=== PATIENT | female | born 1960 | race Caucasian/White ===

== ENCOUNTER → 2017-01-09 | Outpatient (CLI) | payer OTHER ==
--- NOTE | 2017-01-09 16:10 | RADIOLOGY REPORT (SQ) ---
EXAM DESCRIPTION: ARTERIAL LOWER EXTREM BILAT COMPLETED DATE/TIME: 01/09/2017 3:25 pm REASON FOR STUDY: ULCER L97.212 NON-PRESSURE CHRONIC ULCER OF RIGHT CALF W FAT LAYER COMPARISON: None. TECHNIQUE: Dynamic and static baum scale and color images acquired of the lower extremity arteries. Additional selected spectral images recorded. ABIs recorded. LIMITATIONS: Body habitus. FINDINGS: ABIs could not be obtained. Blood pressure could not be obtained in the ankles. No signi ficant stenosis above the knee bilaterally. Anterior tibial artery not imaged on either extremity. Posterior tibial artery patent on the right. Dorsalis pedis patent bilaterally. IMPRESSION: Technically limited study. No significant stenosis above the knee. Evaluation below th e knee limited. COMMENT: [facility] NORMAL: Greater than 1.0 MINIMAL DISEASE: 0.9 to 1.0 CLAUDICATION: 0.5 to 0.9 SEVERE ARTERIAL DISEASE: Less than 0.5 [facility] NORMAL: Greater than 1.0 (1.2 If Heavy Calcifications) NORMAL TO MILD ISCHEMIA: 0.8 to 1.0 MODERATE ISCHEMIA: 0.4 to 0.8 SEVERE ISCHEMIA: Less than 0.4 TECHNICAL DOCUMENTATION: JOB ID: [id number] [employer]- All Rights Reserved
--- NOTE | 2017-01-09 16:34 | RADIOLOGY REPORT (SQ) ---
EXAM DESCRIPTION: VENOUS REFLUX COMPLETED DATE/TIME: 01/09/2017 3:25 pm REASON FOR STUDY: ULCER L97.212 NON-PRESSURE CHRONIC ULCER OF RIGHT CALF W FAT LAYER COMPARISON: None. TECHNIQUE: Multiple real-time grayscale sonographic images were obtained for evaluation of the right and left lower extremity. Doppler and duplex evaluation of the venous structures was performed. LIMITATIONS: None. FINDINGS: The right common femoral, superficial femoral, popliteal and infrapopliteal veins are pat ent with normal response to compression and augmentation maneuvers. The left common femoral, popliteal and infrapopliteal veins are patent with normal response to compr ession and augmentation maneuvers. Along the left proximal femoral vein, there is chronic echogenic clot adherent to the wall. This causes incomplete vascular compression. No reflux. Right greater saphenous vein: No Right small saphenous vein: No Left greater saphenous vein: No Left small saphenous vein: No OTHER: No solid or cystic masses or other abnormal findings. No significant perforating vessels are seen. 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 Otherwi se normal study. TECHNICAL DOCUMENTATION: JOB ID: [id number] [email or web address]- All Rights Reserved
== END ==
LOC: SP 13:08
PROVIDERS: ATTEND Nurse Practitioner Family
DX: L97.212 Non-pressure chronic ulcer of right calf with fat layer exposed (principal); L97.222 Non-pressure chronic ulcer of left calf with fat layer exposed
CPT/HCPCS: 93925; 93970

== ENCOUNTER 2017-01-28 07:51 | Inpatient (IN) | payer OTHER ==
[2017-01-28] MEDS ORDERED: CLINDAMYCIN 900 MG/D5W RTU 50 ML IV ONE (08:51)
[2017-01-28] MEDS ORDERED: MORPHINE SULFATE 10 MG/ML INJ IV ONE (08:58)
--- NOTE | 2017-01-28 08:58 | ER Document Report ---
ED General - General Chief Complaint: Wound Infection Stated Complaint: LEG PAIN Time Seen by Provider: 01/28/17 08:42 TRAVEL OUTSIDE OF THE [place] IN LAST 30 DAYS: No - HPI Notes: This is a 56-year-old diabetic with chronic venous stasis ulcers of the legs presents to the emergency department as she is supposed to have wound debridement done today by Dr. Martinez through the operating room. No fever or systemic symptoms. She cannot tolerate debridement through the wound care clinic where she goes once a week due to pain. She has been n.p.o. since last night. Denies fever or systemic symptoms. Has lower extremity pain. - Related Data Allergies/Adverse Reactions: latex Allergy (Verified 01/28/17 07:58) Home Medications: Current Home Medications Gabapentin [Neurontin] 800 mg PO TID 01/28/17 [History] Metformin HCl [Glucophage XR 500 mg Tablet] 1,000 mg PO BID 01/28/17 [History] Naproxen 500 mg PO BID 01/28/17 [History] Telmisartan/Hydrochlorothiazid [Micardis HCT 40-12.5 mg Tablet] 1 tab PO DAILY 01/28/17 [History] Past Medical History - Social History Smoking Status: Never Smoker Family History: Reviewed & Not Pertinent Renal/ Medical History: Denies: Hx Peritoneal Dialysis Review of Systems - Review of Systems -: Yes All other systems reviewed and negative Physical Exam - Vital signs Vitals: Temp Pulse Resp BP Pulse Ox 97.4 F 96 18 104/68 97 01/28/17 07:52 01/28/17 07:52 01/28/17 07:52 01/28/17 07:52 01/28/17 07:52 Notes: GENERAL: VS as per nursing doc. Well-appearing, well-nourished and in no acute distress. HEAD: Atraumatic, normocephalic. EYES: Pupils equal round and reactive to light, extraocular movements intact, sclera anicteric, no conjunctival injection or discharge. ENT: Nares patent, oropharynx clear without exudates, moist mucous membranes. NECK: Normal range of motion, supple without lymphadenopathy. LUNGS: Breath sounds clear to auscultation bilaterally and equal. No wheezes rales or rhonchi. HEART: Regular rate and rhythm without murmurs. ABDOMEN: Soft, non-tender EXTREMITIES: Chronic venous stasis and cellulitic changes of bilateral lower extremities with some serous drainage noted NEUROLOGICAL: Normal speech. Normal sensory and motor exams. No gross cerebellar abnormalities. PSYCH: Normal mood, normal affect. SKIN: Warm, dry, see above Course - Vital Signs Vital signs: Temp Pulse Resp BP Pulse Ox 97.5 F 112 H 16 110/49 L 100 01/28/17 19:13 01/28/17 19:13 01/28/17 19:13 01/28/17 19:13 01/28/17 19:13 - Laboratory Result Diagrams: 01/29/17 06:34 01/28/17 09:50 Discharge - Discharge Clinical Impression: Cellulitis Condition: Good Disposition: ADMITTED INPATIENT Admitting Provider: Juan Unit Admitted: Surgical Floor
[2017-01-28] MEDS ORDERED: ONDANSETRON HCL INJ/PF 4 MG/2 ML SDV IV ONE (08:59)
[2017-01-28] MEDS ORDERED: NORMAL SALINE 1000 ML 1,000 ML IV ONE (09:00)
[2017-01-28 10:20] LABS: ABSOLUTE EOSINOPHILS # (AUTO) 0.1 10^3/uL (0.0-0.6); ABSOLUTE MONOCYTES (AUTO) 0.7 10^3/uL (0.1-1.4); ABSOLUTE NEUT (AUTO) 8.2 10^3/uL (1.7-8.2); BASOPHILS % (AUTO) 0.4 % (0-2); EOSINOPHILS % (AUTO) 1.1 % (0-6); HEMOGLOBIN 10.7 g/dL (12.0-15.5); HGB HCT DIFFERENCE -0.9; LYMPHOCYTES % (AUTO) 10.2 % (13-45); MEAN CORPUSCULAR HEMOGLOBIN 27.3 pg (27.0-33.4); MEAN CORPUSCULAR HGB CONC 32.5 g/dL (32.0-36.0); MEAN CORPUSCULAR VOLUME 84 fl (80-97); MONOCYTES % (AUTO) 6.7 % (3-13); RED BLOOD COUNT 3.93 10^6/uL (3.72-5.28); RED CELL DISTRIBUTION WIDTH 16.9 % (11.5-14.0); SEGMENTED NEUTROPHILS % (AUTO) 81.6 % (42-78)
[2017-01-28] MEDS ORDERED: HYDROMORPHONE HCL INJ/PF 2 MG/ML AMPULE IV ONE (10:31)
[2017-01-28 10:49] LABS: ANION GAP 13 (5-19); BLOOD UREA NITROGEN 85 mg/dL (7-20); CALCIUM 9.6 mg/dL (8.4-10.2); CARBON DIOXIDE 15 mmol/L (22-30); CHLORIDE 103 mmol/L (98-107); CREATININE RESULT 2.18 mg/dL (0.52-1.25); GLUCOSE 117 mg/dL (75-110); POTASSIUM 5.6 mmol/L (3.6-5.0); SODIUM 130.8 mmol/L (137-145)
[2017-01-28] MEDS ORDERED: MORPHINE SULFATE 10 MG/ML INJ IV PRN ×2 (12:08→17:09)
[2017-01-28] MEDS ORDERED: DEXTROSE 5%-1/2 NORMAL SALINE 1,000 ML IV PRN (12:08)
[2017-01-28] MEDS ORDERED: MORPHINE SULFATE 10 MG/ML INJ ONE (12:08)
--- NOTE | 2017-01-28 16:10 | PDOC H&P ---
General Chief Complaint: Bilateral leg pain, severe about 1 week's duration. No fever moderate drainage. - Diagnosis (1) Stasis dermatitis of left lower extremity with venous ulcer due to chronic peripheral venous hypertension Is this a Current Diagnosis?: Yes (2) Morbid obesity Is this a Current Diagnosis?: Yes (3) Cellulitis Is this a Current Diagnosis?: Yes - Current Medications/Allergies Home Medications: Gabapentin [Neurontin] 800 mg PO TID 01/28/17 Metformin HCl [Glucophage XR 500 mg Tablet] 1,000 mg PO BID 01/28/17 Naproxen 500 mg PO BID 01/28/17 Telmisartan/Hydrochlorothiazid [Micardis HCT 40-12.5 mg Tablet] 1 tab PO DAILY 01/28/17 Allergies/Adverse Reactions: latex Allergy (Verified 01/28/17 07:58) Family History Parental Family History Reviewed: No Children Family History Reviewed: No Sibling(s) Family History Reviewed.: No Social History Smoking Status: Unknown if Ever Smoked Frequency of Alcohol Use: None Drugs: None - Advance Directive Resuscitation Status: Full Code Physical Exam Vital Signs: Temp Pulse Resp BP Pulse Ox 97.5 F 94 20 102/58 L 100 01/28/17 11:56 01/28/17 11:56 01/28/17 11:56 01/28/17 11:56 01/28/17 11:56 Intake & Output 01/27/17 01/28/17 01/29/17 06:59 06:59 06:59 Weight 179.7 kg Additional comments: Constitutional: Well-developed well-nourished lady, morbidly obese. No apparent acute distress. Eyes: Mucous membranes pink and moist, pupils equal and reactive to light. Conjunctiva normal. Cornea normal. Wears spectacles. ENT: Hearing grossly normal. External pinna normal to inspection. Teeth missing tongue normal to inspection. Cardiac: Heart sounds 1 and 2 normal, no murmurs. Respiratory breath sounds are present bilaterally, normal. Normal respiratory effort. Skin: Swollen, erythematous, tender, weeping ulcers of both legs. Almost circumferential. Much necrotic skin. Psychiatric: Judgment, memory, insight seem normal. Mood is tearful, complains of pain. Extremities: Upper extremities show normal range of movement. Pulses present noted to the radial arteries. Capillary refill normal. No cyanosis noted. No muscle wasting noted. Lower extremities just range of movement secondary to body habitus, ulceration. Pulses present noted to the dorsalis pedis artery. Capillary refill normal. No cyanosis noted. No muscle wasting noted. Very extensive, slightly green tinged necrotic ulcers of both legs. Impression/Plan Impression: #1 cellulitis of the both legs. 2. Stasis dermatitis with ulceration in both legs. 3. Morbid obesity. Plan: The plan is to admit the patient for IV antibiotic. She is known to have a history of methicillin-resistant staph aureus. Debridement to be done in the operating room followed by wound care.
[2017-01-28] MEDS ORDERED: LIDOCAINE 2% JELLY 30 ML TUBE ONE (16:23)
[2017-01-28] MEDS ORDERED: FENTANYL CITRATE INJ/PF 100 MCG/2 ML AMPUL ONE ×2 (16:26→17:23)
[2017-01-28] MEDS ORDERED: MIDAZOLAM 2 MG/2 ML INJ ONE (16:26)
[2017-01-28] MEDS ORDERED: LIDOCAINE 2% INJ-PF (20 MG/ML) 10 ML AMPUL ONE (16:26)
[2017-01-28] MEDS ORDERED: PROPOFOL INJ 200 MG/20 ML VIAL IV ONE (16:26)
[2017-01-28] MEDS ORDERED: LIDOCAINE 2% JELLY 30 ML TUBE TOP ONE (17:00)
[2017-01-28] MEDS ORDERED: MEPERIDINE HCL/PF INJ 25 MG/1 ML DISP.SYRIN IV PRN (17:09)
[2017-01-28] MEDS ORDERED: DIPHENHYDRAMINE HCL 50 MG/ML VIAL IV PRN (17:09)
[2017-01-28] MEDS ORDERED: FENTANYL CITRATE INJ/PF 100 MCG/2 ML AMPUL IV PRN ×3 (17:09)
[2017-01-28] MEDS ORDERED: OXYCODONE-ACETAMINOPHEN 5-325 MG TABLET PO PRN ×2 (17:09)
[2017-01-28] MEDS ORDERED: PROMETHAZINE HCL INJ 25 MG/1 ML VIAL IV PRN ×2 (17:09)
--- NOTE | 2017-01-28 17:55 | Operative Report ---
Operative Report DATE OF SURGERY: 01/28/17 PREOPERATIVE DIAGNOSIS: 1. Cellulitis and necrosis of skin in both lower extremities. 2. Stasis dermatitis and ulceration bilateral lower extremity. 3. Morbid obesity. 4. History of MRSA infection. 5. History of deep venous thrombosis and pulmonary embolism. POSTOPERATIVE DIAGNOSIS: 1. Cellulitis and necrosis of skin in both lower extremities. Post debridement. 2. Stasis dermatitis and ulceration bilateral lower extremity. 3. Morbid obesity. 4. History of MRSA infection. 5. History of deep venous thrombosis and pulmonary embolism. OPERATION: Debridement of necrotic skin in the both lower extremities. SURGEON: MARISSA CORREA COMMERCIAL COUNSEL: None ANESTHESIA: LMAC TISSUE REMOVED OR ALTERED: Necrotic skin of both lower extremities. COMPLICATIONS: None ESTIMATED BLOOD LOSS: 20 mL INTRAOPERATIVE FINDINGS: Of necrosis in the skin, circumferential in both legs on a base of severe stasis dermatitis and cellulitis. PROCEDURE: PROCEDURE: The lower extremities were prepared with [Betadine] and draped out with sterile linen. After the"universal time-out", in which it was confirmed that the patient [did receive antibiotic], the procedure commenced. The patient was appropriately anesthetized. The Betadine was washed off with saline. Curettes were used to remove the necrotic skin which was submitted for culture. Cultures were now taken and sent. .The wound was now irrigated with saline and [Surgicel] placed within it , dressed with Xeroform and [Kerlix] then Malvin wraps applied and the procedure concluded.
[2017-01-28] MEDS ORDERED: CLINDAMYCIN 600 MG/D5W RTU 600 MG/50 ML RTUPB IV SCH (18:00)
[2017-01-28] MEDS ORDERED: OXYCODONE-ACETAMINOPHEN 5-325 MG TABLET PO SCH (18:00)
[2017-01-28] MEDS ORDERED: ENOXAPARIN SODIUM INJ 30 MG/0.3 ML DISP.SYRIN SUBCUT SCH (18:00)
[2017-01-28] MEDS: CLINDAMYCIN 600 MG/D5W RTU 600 MG/50 ML RTUPB IV SCH (21:53)
[2017-01-28] MEDS: ENOXAPARIN SODIUM INJ 30 MG/0.3 ML DISP.SYRIN SUBCUT SCH (21:54)
[2017-01-28] MEDS: MORPHINE SULFATE 10 MG/ML INJ IV PRN (21:55)
[2017-01-29] MEDS: MORPHINE SULFATE 10 MG/ML INJ IV PRN ×5 (03:34→21:26)
[2017-01-29] MEDS: CLINDAMYCIN 600 MG/D5W RTU 600 MG/50 ML RTUPB IV SCH ×3 (06:00→21:28)
[2017-01-29 06:59] LABS: HEMATOCRIT 28.3 % (36.0-47.0); HEMOGLOBIN 9.3 g/dL (12.0-15.5); HGB HCT DIFFERENCE -0.4; MEAN CORPUSCULAR HEMOGLOBIN 27.2 pg (27.0-33.4); MEAN CORPUSCULAR HGB CONC 32.7 g/dL (32.0-36.0); MEAN CORPUSCULAR VOLUME 83 fl (80-97); RED CELL DISTRIBUTION WIDTH 16.3 % (11.5-14.0); WHITE BLOOD COUNT 8.3 10^3/uL (4.0-10.5)
[2017-01-29 07:19] LABS: ANION GAP 8 (5-19); CALCIUM 9.3 mg/dL (8.4-10.2); CARBON DIOXIDE 18 mmol/L (22-30); CHLORIDE 109 mmol/L (98-107); CREATININE RESULT 1.53 mg/dL (0.52-1.25); GLUCOSE 146 mg/dL (75-110); POTASSIUM 5.5 mmol/L (3.6-5.0); SODIUM 134.9 mmol/L (137-145)
[2017-01-29 07:51] LABS: BLOOD UREA NITROGEN 55 mg/dL (7-20)
[2017-01-29] MEDS: ENOXAPARIN SODIUM INJ 30 MG/0.3 ML DISP.SYRIN SUBCUT SCH ×2 (09:35→21:32)
--- NOTE | 2017-01-29 10:23 | CONSULTATION REPORT E ---
Consultation Report NAME: RAYMUNDO BROWN : 1960 AGE: 56Y DATE: 01/29/2017 228 A TO: MONIKA SNYDER M.D. FROM: MARISSA GARZA M.D. Requesting Physician CHIEF COMPLAINT: Bilateral lower extremity pain. HISTORY: This is a 56-year-old morbidly obese patient who was admitted with a diagnosis of cellulitis in both lower extremities. This has been an ongoing problem. She has been scheduled for debridement and a request for pain management to assist with her pain associated with her chronic leg pain as well as the acute pain associated with debridement has been made. The patient was seen and evaluated. She notes that in general her pain is adequately controlled at home with limited medications using Naprosyn and tramadol. However, she has considerably more pain during debridement as expected, as well as associated with the flareup of cellulitis. She is requesting modest changes in her medications to assist in better control while she is hospitalized. MEDICATIONS: Other medications at home include: 1. Gabapentin. 2. Metformin. 3. Naprosyn. 4. Tramadol. 5. Micardis. ALLERGIES: LATEX. FAMILY HISTORY: Noncontributory. SOCIAL HISTORY: She is a nonsmoker, nondrinker. She has limited activity at home due to her coexisting medical problems. PHYSICAL EXAMINATION: GENERAL: She is awake, alert, oriented, interactive. VITAL SIGNS: Stable. She is cooperative. Her speech is clear and fluent. SKIN: Dressings are on her lower extremities to her calves. Otherwise, unremarkable. EYES: Her conjunctivae are clear. Sclerae are white. EARS: Normal gross hearing. CARDIAC: Normal rhythm. RESPIRATORY: Good inspiration and expiration without audible wheezing. ABDOMEN: Morbidly obese. EXTREMITIES: As previously described. NEUROLOGICAL: Difficult to assess motor function in the lower extremities secondary to pain. PSYCHIATRIC: She is calm, cooperative, and does not appear overtly distressed. IMPRESSION: 1. Cellulitis with acute pain. 2. History of chronic pain, well managed on an outpatient basis. 3. Morbid obesity. 4. Diabetes. 5. Hypertension. RECOMMENDATIONS: Her medications have been reviewed. Her IV morphine has been changed from 3 mg q. 4 hours p.r.n. to 4 mg q. 3 hours p.r.n. Oxycodone has been changed from 5 mg t.i.d. to 5 mg with Tylenol q. 4 hours p.r.n., hold for sedation. No other recommendations are made at this time. The patient has been instructed to contact pain management on an outpatient basis for further care, and should her pain prove insufficient, to contact pain management through the nursing staff to make adjustments as deemed necessary. DICTATING PHYSICIAN: MONIKA SNYDER M.D. [id number] PHY#: [id number] ID: [id number] JOB#: [id number] ACCT: [id number] cc:MONIKA SNYDER M.D. >
[2017-01-29] MEDS: OXYCODONE-ACETAMINOPHEN 5-325 MG TABLET PO PRN (18:32)
--- NOTE | 2017-01-29 19:02 | PDOC PROGRESS REPORT ---
Subjective Progress Note for:: 01/29/17 Subjective:: Overall the patient is comfortable. She is complaining of stinging pain when she gets up to the commode. On questioning, she does not notice having a high pulse rate. This is actually been noted since her admission on the it may be chronic. Physical Exam Vital Signs: Temp Pulse Resp BP Pulse Ox 98.3 F 101 H 16 117/51 L 100 01/29/17 16:18 01/29/17 16:18 01/29/17 16:18 01/29/17 16:18 01/29/17 16:18 Intake & Output 01/28/17 01/29/17 01/30/17 06:59 06:59 06:59 Intake Total 1660 Output Total 1815 Balance -155 Weight 179.7 kg Additional comments: Constitutional: Well-developed well-nourished lady, morbidly obese body habitus. No apparent acute distress. Eyes: Mucous membranes pink and moist, pupils equal and reactive to light. Conjunctiva normal. Cornea normal. ENT: Hearing grossly normal. External pinna normal to inspection. Teeth intact. Tongue normal to inspection. Respiratory: Normal respiratory effort. Psychiatric: Judgment, memory, insight seem normal. Mood is pleasant and appropriate. Lower extremities show normal range of movement at the feet. . Capillary refill normal. No cyanosis noted. Dressings intact with some mild greenish staining.. Results Laboratory Results: 01/29/17 06:34 01/29/17 06:34 01/29/17 01/29/17 06:34 06:34 WBC 8.3 RBC 3.40 L Hgb 9.3 L Hct 28.3 L MCV 83 MCH 27.2 MCHC 32.7 RDW 16.3 H Plt Count 254 Sodium 134.9 L Potassium 5.5 H Chloride 109 H Carbon Dioxide 18 L Anion Gap 8 BUN 55 H D Creatinine 1.53 H Est GFR ( Amer) 42 L Est GFR (Non-Af Amer) 35 L Glucose 146 H Calcium 9.3 Assessment & Plan - Diagnosis (1) Stasis dermatitis of left lower extremity with venous ulcer due to chronic peripheral venous hypertension Is this a current diagnosis for this admission?: Yes (2) Morbid obesity Is this a current diagnosis for this admission?: Yes (3) Cellulitis Qualifiers: Site of cellulitis of extremity: lower extremity Laterality: unspecified laterality Is this a current diagnosis for this admission?: Yes (4) History of DVT (deep vein thrombosis) Is this a current diagnosis for this admission?: No Plan: On low molecular weight heparin, on sequential compression device. Ambulation encouraged physical therapy consult and nursing the patient up and about as much as possible. (5) Tachycardia Is this a current diagnosis for this admission?: Yes Plan: EKG, repeat CBC, obtain hospitalist consultation. This seems is asymptomatic, the patient has not noted it and it has been present since his admission. - Plan Summary Plan Summary: Holistic plan for this patient pain management issues and cellulitis in the both legs on severe stasis ulceration is continued IV antibiotic, repeat procedure to the operating room for repeat debridement. In the meanwhile we will try to obtain a consultation from pain management for optimal pain control and also from the hospitalist service regarding her asymptomatic tachycardia. The hope and expectation is to revisit debridement and to days and possibly aim for discharge in 3-4 days. The possibilities of things getting more complex always there in this patient who is morbidly obese and a history of deep venous thrombosis and pulmonary embolism.
[2017-01-30] MEDS: MORPHINE SULFATE 10 MG/ML INJ IV PRN ×4 (02:54→18:00)
[2017-01-30] MEDS: CLINDAMYCIN 600 MG/D5W RTU 600 MG/50 ML RTUPB IV SCH ×3 (06:17→22:53)
[2017-01-30] MEDS: OXYCODONE-ACETAMINOPHEN 5-325 MG TABLET PO PRN ×4 (06:17→23:03)
[2017-01-30 06:25] LABS: ABSOLUTE EOSINOPHILS # (AUTO) 0.1 10^3/uL (0.0-0.6); ABSOLUTE LYMPHOCYTES (AUTO) 0.9 10^3/uL (0.5-4.7); ABSOLUTE MONOCYTES (AUTO) 0.6 10^3/uL (0.1-1.4); BASOPHILS % (AUTO) 0.5 % (0-2); EOSINOPHILS % (AUTO) 1.7 % (0-6); HEMOGLOBIN 9.1 g/dL (12.0-15.5); HGB HCT DIFFERENCE -0.7; LYMPHOCYTES % (AUTO) 15.6 % (13-45); MEAN CORPUSCULAR HEMOGLOBIN 27.2 pg (27.0-33.4); MEAN CORPUSCULAR HGB CONC 32.4 g/dL (32.0-36.0); MEAN CORPUSCULAR VOLUME 84 fl (80-97); MONOCYTES % (AUTO) 9.9 % (3-13); RED BLOOD COUNT 3.33 10^6/uL (3.72-5.28); RED CELL DISTRIBUTION WIDTH 16.4 % (11.5-14.0); SEGMENTED NEUTROPHILS % (AUTO) 72.3 % (42-78); WHITE BLOOD COUNT 5.6 10^3/uL (4.0-10.5)
--- NOTE | 2017-01-30 08:35 | EKG REPORT ---
SEVERITY:- ABNORMAL ECG - SINUS TACHYCARDIA PROBABLE INFERIOR INFARCT, AGE INDETERMINATE : Confirmed by: Jared Lake 30-Jan-2017 08:34:18
[2017-01-30] MEDS: ENOXAPARIN SODIUM INJ 30 MG/0.3 ML DISP.SYRIN SUBCUT SCH ×2 (09:31→22:52)
--- NOTE | 2017-01-30 10:33 | PDOC CONSULTATION ---
Consultation Consult Date: 01/30/17 Consult reason:: Persistent tachycardia History of Present Illness Admission Date/PCP: 01/28/17 09:36 FLAVIO EMANUEL Patient complains of: None History of Present Illness: RAYMUNDO BROWN is a 56 year old female who underwent debridement of her lower legs 2 days ago, and has since been tachycardic. She is without complaints. Specifically, she did not report shortness of breath or chest pain. Her heart rate has been as high as 115. For the last 24 hours, it has been in the 90s. She has a history of hypertension and has been treated with Micardis/HCT. She has not been on her antihypertensive medications during this hospital stay. Past Medical History Cardiac Medical History: Reports: Hypertension Endocrine Medical History: Reports: Diabetes Mellitus Type 2, Obesity Renal/ Medical History: Reports: None Infectious Medical History: Reports: Methicillin-Resistant Staph Aureus - Colonization Social History Lives with: Family Smoking Status: Never Smoker Frequency of Alcohol Use: None Drugs: None - Advance Directive Resuscitation Status: Full Code Family History Family History: Reviewed & Not Pertinent Parental Family History Reviewed: No Children Family History Reviewed: No Sibling(s) Family History Reviewed.: No Medication/Allergy Home Medications: Gabapentin [Neurontin] 800 mg PO TID 01/28/17 Metformin HCl [Glucophage XR 500 mg Tablet] 1,000 mg PO BID 01/28/17 Naproxen 500 mg PO BID 01/28/17 Telmisartan/Hydrochlorothiazid [Micardis HCT 40-12.5 mg Tablet] 1 tab PO DAILY 01/28/17 Allergies/Adverse Reactions: latex Allergy (Verified 01/28/17 07:58) Review of Systems Constitutional: ABSENT: chills, fever(s), headache(s), weight gain, weight loss Eyes: ABSENT: visual disturbances Ears: ABSENT: hearing changes Cardiovascular: ABSENT: chest pain, dyspnea on exertion, edema, orthropnea, palpitations Respiratory: ABSENT: cough, hemoptysis Gastrointestinal: ABSENT: abdominal pain, constipation, diarrhea, hematemesis, hematochezia, nausea, vomiting Musculoskeletal: PRESENT: back pain - Chronic Neurological: ABSENT: abnormal gait, abnormal speech, confusion, dizziness, focal weakness, syncope Physical Exam Vital Signs: Temp Pulse Resp BP Pulse Ox 98.7 F 96 15 104/55 L 98 01/30/17 08:10 09/13/17 08:10 01/30/17 08:10 01/30/17 08:10 01/30/17 08:10 Intake & Output 01/29/17 01/30/17 01/31/17 06:59 06:59 06:59 Intake Total 1660 Output Total 1815 Balance -155 Weight 179.7 kg General appearance: PRESENT: no acute distress, morbidly obese Head exam: PRESENT: atraumatic, normocephalic Eye exam: PRESENT: EOMI, PERRLA Neck exam: PRESENT: full ROM Respiratory exam: PRESENT: clear to auscultation keith. ABSENT: rales, rhonchi, wheezes Cardiovascular exam: PRESENT: RRR. ABSENT: diastolic murmur, rubs, systolic murmur GI/Abdominal exam: PRESENT: hypoactive bowel sounds, soft. ABSENT: distended, tenderness Neurological exam: PRESENT: alert, oriented to person, oriented to place, oriented to time, oriented to situation, CN II-XII grossly intact Psychiatric exam: PRESENT: appropriate affect, normal mood. ABSENT: homicidal ideation, suicidal ideation Skin exam: PRESENT: dry, intact, warm, other - Lower legs are wrapped in Malvin bandage. ABSENT: cyanosis, rash Results Laboratory Results: 01/30/17 06:02 01/29/17 06:34 01/30/17 06:02 WBC 5.6 RBC 3.33 L Hgb 9.1 L Hct 28.0 L MCV 84 MCH 27.2 MCHC 32.4 RDW 16.4 H Plt Count 238 Seg Neutrophils % 72.3 Lymphocytes % 15.6 Monocytes % 9.9 Eosinophils % 1.7 Basophils % 0.5 Absolute Neutrophils 4.0 Absolute Lymphocytes 0.9 Absolute Monocytes 0.6 Absolute Eosinophils 0.1 Absolute Basophils 0.0 Assessment & Plan - Diagnosis (1) Acute kidney injury Is this a current diagnosis for this admission?: Yes Plan: I suspect this is related to volume depletion, in the setting of her antihypertensive medications. Her creatinine has improved with IV fluids alone. I will continue the IV fluids, and repeat labs in a.m. (2) Hypotension Qualifiers: Hypotension type: unspecified hypotension type Qualified Code(s): I95.9 - Hypotension, unspecified Is this a current diagnosis for this admission?: Yes Plan: As above, this is most likely due to volume depletion in the setting of antihypertensive medications. The IV fluids. She may not need blood pressure medications at the time of discharge. If so, she can follow-up with her outpatient physician for further evaluation. (3) Hyperkalemia Is this a current diagnosis for this admission?: Yes Plan: Although mild, still abnormal. Again, this is related to the above. (4) Sinus tachycardia Is this a current diagnosis for this admission?: Yes Plan: See above. Her heart rate has improved with administration of IV fluids. We will continue the fluids. 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 Metformin has been held. I will continue to hold it. Change dextrose containing IV fluids to half-normal saline. Check hemoglobin A1c. If her creatinine normalizes, she should be able to go back on metformin. (6) Morbid obesity Is this a current diagnosis for this admission?: Yes Plan: Outpatient weight management (7) Hypertension Qualifiers: Hypertension type: essential hypertension Qualified Code(s): I10 - Essential (primary) hypertension Is this a current diagnosis for this admission?: Yes Plan: Currently, her blood pressure is low. She may no longer require antihypertensive medications. Time will tell. I will continue to hold Micardis /HCTZ. She may need to follow-up with her outpatient provider to determine whether or not to restart it or not. - Time Time Spent: 50 to 70 Minutes Medications reviewed and adjusted accordingly: Yes Anticipated discharge: Home
[2017-01-30] MEDS: 1/2 NORMAL SALINE 1,000 ML IV PRN (12:28)
[2017-01-31] MEDS: 1/2 NORMAL SALINE 1,000 ML IV PRN (03:35)
[2017-01-31] MEDS: OXYCODONE-ACETAMINOPHEN 5-325 MG TABLET PO PRN ×3 (03:39→19:55)
[2017-01-31 04:40] LABS: HEMATOCRIT 26.6 % (36.0-47.0); HGB HCT DIFFERENCE 0.4; MEAN CORPUSCULAR HEMOGLOBIN 27.8 pg (27.0-33.4); MEAN CORPUSCULAR VOLUME 82 fl (80-97); RED BLOOD COUNT 3.25 10^6/uL (3.72-5.28); RED CELL DISTRIBUTION WIDTH 16.4 % (11.5-14.0)
[2017-01-31 04:53] LABS: ANION GAP 8 (5-19); BLOOD UREA NITROGEN 30 mg/dL (7-20); CALCIUM 8.9 mg/dL (8.4-10.2); CARBON DIOXIDE 20 mmol/L (22-30); CHLORIDE 109 mmol/L (98-107); CREATININE RESULT 1.34 mg/dL (0.52-1.25); GLUCOSE 113 mg/dL (75-110); POTASSIUM 4.8 mmol/L (3.6-5.0); SODIUM 136.6 mmol/L (137-145)
[2017-01-31] MEDS: CLINDAMYCIN 600 MG/D5W RTU 600 MG/50 ML RTUPB IV SCH (05:27)
[2017-01-31 05:59] LABS: FOLATE 8.44 ng/mL (>2.76)
[2017-01-31] MEDS: MORPHINE SULFATE 10 MG/ML INJ IV PRN ×2 (08:02→14:17)
[2017-01-31] MEDS: ENOXAPARIN SODIUM INJ 30 MG/0.3 ML DISP.SYRIN SUBCUT SCH (10:17)
[2017-01-31] MEDS ORDERED: BUPIVACAINE HCL 0.25 % INJ/PF (2.5 MG/1 ML) 30 ML VIAL ONE (10:31)
[2017-01-31] MEDS ORDERED: LIDOCAINE 2% INJ-PF (20 MG/ML) 10 ML AMPUL ONE (10:31)
[2017-01-31] MEDS ORDERED: LIDOCAINE 0.5% INJ-PF (5 MG/ML) 50 ML SDV ONE (10:31)
[2017-01-31] MEDS ORDERED: SILVER SULFADIAZINE 1% CREAM 25 GM ONE (10:31)
[2017-01-31] MEDS ORDERED: COLLAGENASE CLOSTRIDIUM HIST. OINT 30 GM ONE (10:31)
[2017-01-31] MEDS ORDERED: KETAMINE HCL INJ 500 MG/10 ML VIAL ONE (10:32)
[2017-01-31] MEDS ORDERED: FENTANYL CITRATE INJ/PF 100 MCG/2 ML AMPUL ONE ×2 (10:32→10:42)
[2017-01-31] MEDS ORDERED: BACITRACIN INJ 50,000 UNIT VIAL ONE (10:32)
[2017-01-31] MEDS ORDERED: MIDAZOLAM 2 MG/2 ML INJ ONE ×2 (10:32→12:32)
[2017-01-31] MEDS ORDERED: PROPOFOL INJ 200 MG/20 ML VIAL IV ONE (10:32)
[2017-01-31] MEDS ORDERED: ACETAMINOPHEN 100 ML IV ONE (10:32)
[2017-01-31] MEDS ORDERED: SULFAMETHOXAZOLE/TRIMETHOPRIM 800-160 MG TABLET PO ONE (11:30)
[2017-01-31] MEDS ORDERED: MEPERIDINE HCL/PF INJ 25 MG/1 ML DISP.SYRIN IV PRN (12:13)
[2017-01-31] MEDS ORDERED: PROMETHAZINE HCL INJ 25 MG/1 ML VIAL IV PRN ×2 (12:13)
[2017-01-31] MEDS ORDERED: DIPHENHYDRAMINE HCL 50 MG/ML VIAL IV PRN (12:13)
[2017-01-31] MEDS ORDERED: OXYCODONE-ACETAMINOPHEN 5-325 MG TABLET PO PRN ×2 (12:13)
[2017-01-31] MEDS ORDERED: ONDANSETRON HCL INJ/PF 4 MG/2 ML SDV IV PRN (12:13)
[2017-01-31] MEDS ORDERED: MORPHINE SULFATE 10 MG/ML INJ IV PRN (12:13)
[2017-01-31] MEDS ORDERED: FENTANYL CITRATE INJ/PF 100 MCG/2 ML AMPUL IV PRN ×3 (12:13)
[2017-01-31] MEDS: FENTANYL CITRATE INJ/PF 100 MCG/2 ML AMPUL ONE ×2 (12:55→13:05)
[2017-01-31] MEDS ORDERED: LORAZEPAM INJ 2 MG/1 ML VIAL ONE (12:56)
--- NOTE | 2017-01-31 14:40 | PDOC PROGRESS REPORT ---
Subjective Progress Note for:: 01/31/17 Subjective:: She just got back from debridement. Currently, she is waiting for pain medications. Otherwise, she has no complaints. Physical Exam Vital Signs: Temp Pulse Resp BP Pulse Ox 98.4 F 97 18 110/61 100 01/31/17 10:41 01/31/17 10:41 01/31/17 10:41 01/31/17 10:41 01/31/17 10:41 Intake & Output 01/30/17 01/31/17 02/01/17 06:59 06:59 06:59 Intake Total 600 560 Output Total 200 60 Balance 400 500 Weight 155 kg General appearance: PRESENT: no acute distress Head exam: PRESENT: atraumatic, normocephalic Eye exam: PRESENT: conjunctiva pink, EOMI, PERRLA. ABSENT: scleral icterus Neck exam: ABSENT: carotid bruit, JVD, lymphadenopathy, thyromegaly Respiratory exam: PRESENT: clear to auscultation keith. ABSENT: rales, rhonchi, wheezes Cardiovascular exam: PRESENT: RRR. ABSENT: diastolic murmur, rubs, systolic murmur GI/Abdominal exam: PRESENT: normal bowel sounds, soft. ABSENT: distended, guarding, mass, organolmegaly, rebound, tenderness Extremities exam: PRESENT: other - Both calves are wrapped with Malvin bandages Psychiatric exam: PRESENT: appropriate affect, normal mood. ABSENT: homicidal ideation, suicidal ideation Results Laboratory Results: 01/31/17 04:04 01/31/17 04:04 01/31/17 01/31/17 04:04 04:04 WBC 6.0 RBC 3.25 L Hgb 9.0 L Hct 26.6 L MCV 82 MCH 27.8 MCHC 34.0 RDW 16.4 H Plt Count 217 Retic Count (auto) 1.12 Absolute Retic 0.037 Sodium 136.6 L Potassium 4.8 Chloride 109 H Carbon Dioxide 20 L Anion Gap 8 BUN 30 H Creatinine 1.34 H Est GFR ( Amer) 49 L Est GFR (Non-Af Amer) 41 L Glucose 113 H Calcium 8.9 Iron < 10.1 L TIBC 223 L % Saturation UNABLE TO CALCULATE Ferritin 209.00 Vitamin B12 198.0 L Folate 8.44 01/28/17 17:00 Leg - Cellulitis Gram Stain - Final 01/28/17 17:00 Leg - Cellulitis Wound Culture - Final Alcaligenes Species Proteus Vulgaris Staphylococcus Aureus Providencia Stuartii Corynebacterium Species Prevotella Species Bacteroides Fragilis Group 01/28/17 17:00 Leg - Cellulitis Gram Stain - Final 01/28/17 17:00 Leg - Cellulitis Wound Culture - Final Alcaligenes Species Staphylococcus Aureus Providencia Stuartii Proteus Vulgaris Corynebacterium Species Prevotella Species Bacteroides Fragilis Group Assessment & Plan - Diagnosis (1) Acute kidney injury Is this a current diagnosis for this admission?: Yes Plan: I suspect this is related to volume depletion, in the setting of her antihypertensive medications. Her creatinine has improved with IV fluids alone. I will continue the IV fluids, and repeat labs in a.m. (2) Hypotension Qualifiers: Hypotension type: unspecified hypotension type Qualified Code(s): I95.9 - Hypotension, unspecified Is this a current diagnosis for this admission?: Yes Plan: As above, this is most likely due to volume depletion in the setting of antihypertensive medications. She may not need blood pressure medications at the time of discharge. If not, she can follow-up with her outpatient physician for further evaluation. 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 Metformin has been held due to renal failure. I will continue to hold it. A1c pending. If her creatinine normalizes, she should be able to go back on metformin. (6) Morbid obesity Is this a current diagnosis for this admission?: Yes Plan: Outpatient weight management. (7) Hypertension Qualifiers: Hypertension type: essential hypertension Qualified Code(s): I10 - Essential (primary) hypertension Is this a current diagnosis for this admission?: Yes Plan: Currently, her blood pressure is normal. She may no longer require antihypertensive medications. Time will tell. I will continue to hold Micardis /HCTZ. She may need to follow-up with her outpatient provider to determine whether or not to restart it or not. (8) Anemia Qualifiers: Anemia type: iron deficiency Iron deficiency anemia type: unspecified iron deficiency Qualified Code(s): D50.9 - Iron deficiency anemia, unspecified Is this a current diagnosis for this admission?: Yes Plan: Start iron polysaccharide 150 mg daily. Hemoccult stool (9) Anemia Qualifiers: Anemia type: B12 deficiency Vitamin B12 deficiency anemia type: unspecified B12 deficiency Qualified Code(s): D51.9 - Vitamin B12 deficiency anemia, unspecified Is this a current diagnosis for this admission?: Yes Plan: Start B12 1000 mcg daily - Time Time Spent with patient: 15-24 minutes Medications reviewed and adjusted accordingly: Yes Anticipated discharge: Home
[2017-01-31] MEDS: SULFAMETHOXAZOLE/TRIMETHOPRIM 800-160 MG TABLET PO SCH (17:30)
[2017-01-31] MEDS: DEXTROSE 5%-1/2 NORMAL SALINE 1,000 ML IV PRN (19:10)
[2017-02-01] MEDS: OXYCODONE-ACETAMINOPHEN 5-325 MG TABLET PO PRN ×5 (00:45→21:39)
[2017-02-01] MEDS: ENOXAPARIN SODIUM INJ 30 MG/0.3 ML DISP.SYRIN SUBCUT SCH ×3 (00:45→21:40)
[2017-02-01 07:00] LABS: ANION GAP 5 (5-19); BLOOD UREA NITROGEN 18 mg/dL (7-20); CALCIUM 9.3 mg/dL (8.4-10.2); CARBON DIOXIDE 24 mmol/L (22-30); CHLORIDE 110 mmol/L (98-107); CREATININE RESULT 1.33 mg/dL (0.52-1.25); GLUCOSE 111 mg/dL (75-110); POTASSIUM 4.9 mmol/L (3.6-5.0)
--- NOTE | 2017-02-01 09:04 | PDOC PROGRESS REPORT ---
Subjective Progress Note for:: 02/01/17 Subjective:: No complaints. she thinks she will be discharged today. Physical Exam Vital Signs: Temp Pulse Resp BP Pulse Ox 98.6 F 91 16 127/73 H 98 02/01/17 07:49 02/01/17 07:49 02/01/17 07:49 02/01/17 07:49 02/01/17 07:49 Intake & Output 01/31/17 02/01/17 02/02/17 06:59 06:59 06:59 Intake Total 600 2460 Output Total 200 1000 Balance 400 1460 Weight 155 kg General appearance: PRESENT: no acute distress, morbidly obese Head exam: PRESENT: atraumatic, normocephalic Respiratory exam: PRESENT: clear to auscultation keith. ABSENT: rales, rhonchi, wheezes Cardiovascular exam: PRESENT: RRR. ABSENT: diastolic murmur, rubs, systolic murmur GI/Abdominal exam: PRESENT: normal bowel sounds, soft. ABSENT: distended, guarding, mass, organolmegaly, rebound, tenderness Neurological exam: PRESENT: alert, awake, oriented to person, oriented to place , oriented to time, oriented to situation, CN II-XII grossly intact. ABSENT: motor sensory deficit Results Laboratory Results: 01/31/17 04:04 02/01/17 06:25 01/31/17 02/01/17 04:04 06:25 Sodium 139.0 Potassium 4.9 Chloride 110 H Carbon Dioxide 24 Anion Gap 5 BUN 18 Creatinine 1.33 H Est GFR ( Amer) 50 L Est GFR (Non-Af Amer) 41 L Glucose 111 H Calcium 9.3 Transferrin 143 L Assessment & Plan - Diagnosis (1) Acute kidney injury Is this a current diagnosis for this admission?: Yes Plan: Her creatinine is still mildly elevated. She may have chronic disease. She should follow up with her PCP to recheck her renal function, and to determine whether or not she truly has chronic kidney disease or not. (2) Hypotension Qualifiers: Hypotension type: unspecified hypotension type Qualified Code(s): I95.9 - Hypotension, unspecified Is this a current diagnosis for this admission?: Yes Plan: As above, this is most likely due to volume depletion in the setting of antihypertensive medications. Her blood pressure is normal. I would not send her home on antihypertensive medications. She needs to follow-up with her primary care physician in 1-2 weeks in order to ascertain whether not to continue antihypertensive medications. 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 Metformin was held due to renal failure. A1c is still pending. Her creatinine came down enough for her to resume metformin. (6) Morbid obesity Is this a current diagnosis for this admission?: Yes Plan: Outpatient weight management. (7) Hypertension Qualifiers: Hypertension type: essential hypertension Qualified Code(s): I10 - Essential (primary) hypertension Is this a current diagnosis for this admission?: Yes Plan: Currently, her blood pressure is normal. She may no longer require antihypertensive medications. Time will tell. I will continue to hold Micardis /HCTZ. She may need to follow-up with her outpatient provider to determine whether or not to restart it or not. (8) Anemia Qualifiers: Anemia type: iron deficiency Iron deficiency anemia type: unspecified iron deficiency Qualified Code(s): D50.9 - Iron deficiency anemia, unspecified Is this a current diagnosis for this admission?: Yes Plan: Continue iron polysaccharide 150 mg daily. (9) Anemia Qualifiers: Anemia type: B12 deficiency Vitamin B12 deficiency anemia type: unspecified B12 deficiency Qualified Code(s): D51.9 - Vitamin B12 deficiency anemia, unspecified Is this a current diagnosis for this admission?: Yes Plan: Continue vitamin B12 1000 mcg daily - Time Time Spent with patient: 15-24 minutes Medications reviewed and adjusted accordingly: Yes Anticipated discharge: Home - Plan Summary Plan Summary: Thank you for the consult. Will sign off.
[2017-02-01] MEDS: CYANOCOBALAMIN (VITAMIN B-12) 1,000 MCG TABLET PO SCH (09:06)
[2017-02-01] MEDS: SULFAMETHOXAZOLE/TRIMETHOPRIM 800-160 MG TABLET PO SCH ×2 (09:06→17:23)
[2017-02-01] MEDS: IRON POLYSACCHARIDES COMPLEX 150 MG CAPSULE PO SCH (09:06)
--- NOTE | 2017-02-01 10:10 | Operative Report ---
Operative Report DATE OF SURGERY: 01/31/17 PREOPERATIVE DIAGNOSIS: 1. Cellulitis and necrosis of skin in both lower extremities. 2. Stasis dermatitis and ulceration bilateral lower extremity. 3. Morbid obesity. 4. History of MRSA infection. 5. History of deep venous thrombosis and pulmonary embolism. POSTOPERATIVE DIAGNOSIS: 1. Cellulitis and necrosis of skin in both lower extremities. Post debridement. 2. Stasis dermatitis and ulceration bilateral lower extremity. 3. Morbid obesity. 4. History of MRSA infection. 5. History of deep venous thrombosis and pulmonary embolism. OPERATION: Debridement of necrotic skin in the both lower extremities. SURGEON: MARISSA CORREA MANAGER FORENSIC: None ANESTHESIA: LMAC TISSUE REMOVED OR ALTERED: Necrotic skin of both lower extremities.Much improved from previous debridement. May need a further session. ESTIMATED BLOOD LOSS: 20 mL INTRAOPERATIVE FINDINGS: Of necrosis in the skin, circumferential in both legs on a base of severe stasis dermatitis and cellulitis. PROCEDURE: PROCEDURE: Both legs were prepared with [Betadine] and draped out with sterile linen. After the"universal time-out", in which it was confirmed that the patient [did receive antibiotic], the procedure commenced. The patient was appropriately anesthetized. The legs were cleaned and soaked in 0.25% Ascetic acid, for 5 minutes. To locally address a number of cultured organisms. The wound was debrided of non viable tissue using[Rongeurs] and with curettes, with removal of loose debris, as well. The wound was irrigated with [Peroxide] . Then with saline .The wound was now irrigated with saline and [Surgicel] placed within it, dressed with Xeroform, then [Kerlix] , Malvin wraps and the procedure concluded.
[2017-02-01] MEDS: METFORMIN HCL 500 MG TABLET PO SCH (16:48)
[2017-02-02] MEDS: MORPHINE SULFATE 10 MG/ML INJ IV PRN ×3 (00:52→17:41)
[2017-02-02] MEDS: DEXTROSE 5%-1/2 NORMAL SALINE 1,000 ML IV PRN (02:03)
[2017-02-02] MEDS: OXYCODONE-ACETAMINOPHEN 5-325 MG TABLET PO PRN ×4 (04:55→21:12)
[2017-02-02] MEDS: METFORMIN HCL 500 MG TABLET PO SCH ×2 (08:52→17:13)
[2017-02-02] MEDS: ENOXAPARIN SODIUM INJ 30 MG/0.3 ML DISP.SYRIN SUBCUT SCH ×2 (09:10→21:12)
[2017-02-02] MEDS: IRON POLYSACCHARIDES COMPLEX 150 MG CAPSULE PO SCH (09:12)
[2017-02-02] MEDS: CYANOCOBALAMIN (VITAMIN B-12) 1,000 MCG TABLET PO SCH (09:12)
[2017-02-02] MEDS: SULFAMETHOXAZOLE/TRIMETHOPRIM 800-160 MG TABLET PO SCH ×2 (09:12→17:14)
[2017-02-02] MEDS ORDERED: SODIUM HYPOCHLORITE 0.25% SOLN 473 ML BOTTLE TP PRN (09:54)
[2017-02-02] MEDS ORDERED: ACETIC ACID 3% SOLN 473 ML TOP PRN (11:32)
--- NOTE | 2017-02-02 14:15 | PDOC DISCHARGE SUMMARY ---
General - Admit/Disc Date/PCP Admission Date/Primary Care Provider: 01/30/17 10:00 FLAVIO EMANUEL Discharge Date: 02/02/17 - Discharge Diagnosis (1) Stasis dermatitis of left lower extremity with venous ulcer due to chronic peripheral venous hypertension Is this a current diagnosis for this admission?: Yes (2) Morbid obesity Is this a current diagnosis for this admission?: Yes (3) Cellulitis Is this a current diagnosis for this admission?: Yes (4) History of DVT (deep vein thrombosis) Is this a current diagnosis for this admission?: No (5) Tachycardia Is this a current diagnosis for this admission?: Yes (6) Acute kidney injury Is this a current diagnosis for this admission?: Yes (7) Diabetes mellitus Is this a current diagnosis for this admission?: Yes - Additional Information Resuscitation Status: Full Code Home Medications: Gabapentin [Neurontin] 800 mg PO TID 01/28/17 Metformin HCl [Glucophage XR 500 mg Tablet] 1,000 mg PO BID 01/28/17 Naproxen 500 mg PO BID 01/28/17 Telmisartan/Hydrochlorothiazid [Micardis HCT 40-12.5 mg Tablet] 1 tab PO DAILY 01/28/17 History of Present Illness History of Present Illness: RAYMUNDO BROWN is a 56 year old female Hospital Course Hospital Course: This patient was admitted for intensive wound care, operative debridements and treatment of comorbidities. She has been previously seen in the wound clinic for severe stasis ulceration in the both legs with bacterial contamination and necrosis. This is compounded by pain management challenges, she is seen by the [facility]. [place] 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 During this admission the patient was admitted and underwent debridement of her wounds twice. In the operating room. In the meantime she had treatment of her pain and a consultation was obtained from the hospitalist service very kindly help to fine-tune her medical issues including the finding of acute renal injury. Today 02 February the wound dressings were taken down, cleaned with quarter percent vinegar and dressed with Unna boots. The Unna boots were intentionally loosely applied. And loosely so as to prevent any constriction in future. In addition the patient is counseled to cut the bandages off if they seem to tight or the feet become painful or uncomfortable. The patient's medication is to be per her active drug profile. In addition she will be given a prescription for Percocet for pain of maximum of 10 tablets. She knows to contact [facility] where she normally gets her medications for additional pain medication. In addition [place] for of multiple comorbidities. She is counseled in regards to the necessity to keep well-hydrated in order to reduce the risk of deep venous thrombosis and also the risk of acute renal injury. She knows to ambulate and to keep active as much as possible also to reduce her risks. Follow-up is to be in the wound clinic next week by appointment. Physical Exam Vital Signs: Temp Pulse Resp BP Pulse Ox 98.5 F 88 18 108/63 99 02/02/17 11:22 02/02/17 11:22 02/02/17 11:22 02/02/17 11:22 02/02/17 11:22 Intake & Output 02/01/17 02/02/17 02/03/17 06:59 06:59 06:59 Intake Total 2460 2300 Output Total 1000 500 Balance 1460 1800 Weight 155 kg Additional comments: Constitutional: Well-developed well-nourished lady, morbidly obese body habitus. Chronic emotional distress, tearful. Eyes: Mucous membranes pink and moist, pupils equal and reactive to light. Conjunctiva normal. Cornea normal. ENT: Hearing grossly normal. External pinna normal to inspection. Respiratory: Normal respiratory effort. Skin: Almost circumferential ulceration in both legs, much improved from previously with virtually no necrosis remaining. Odor and greenish discoloration previously present is gone. Psychiatric: Judgment, memory, insight seem normal. Mood is anxious and tearful. Extremities: Upper extremities show normal range of movement. Pulses present noted to the radial arteries. Capillary refill normal. No cyanosis noted. No muscle wasting noted. Lower extremities show reduced range of movement. She has osteoarthritis of the hips and is unable to move her legs very much. Pulses present noted to the dorsalis pedis artery. Capillary refill normal. No cyanosis noted. No muscle wasting noted.Almost circumferential ulceration in both legs, much improved from previously with virtually no necrosis remaining. Odor and greenish discoloration previously present is gone Results Laboratory Results: 01/31/17 04:04 02/01/17 06:25 Plan Discharge Plan: Today 02 February the wound dressings were taken down, cleaned with quarter percent vinegar and dressed with Unna boots. The Unna boots were intentionally loosely applied. And loosely so as to prevent any constriction in future. In addition the patient is counseled to cut the bandages off if they seem to tight or the feet become painful or uncomfortable. The patient's medication is to be per her active drug profile. In addition she will be given a prescription for Percocet for pain of maximum of 10 tablets. She knows to contact [facility] where she normally gets her medications for additional pain medication. In addition [place] for of multiple comorbidities. She is counseled in regards to the necessity to keep well-hydrated in order to reduce the risk of deep venous thrombosis and also the risk of acute renal injury. She knows to ambulate and to keep active as much as possible also to reduce her risks. Follow-up is to be in the wound clinic next week by appointment
[2017-02-03] MEDS: OXYCODONE-ACETAMINOPHEN 5-325 MG TABLET PO PRN ×3 (05:19→14:12)
[2017-02-03] MEDS: SULFAMETHOXAZOLE/TRIMETHOPRIM 800-160 MG TABLET PO SCH (09:03)
[2017-02-03] MEDS: CYANOCOBALAMIN (VITAMIN B-12) 1,000 MCG TABLET PO SCH (09:03)
[2017-02-03] MEDS: IRON POLYSACCHARIDES COMPLEX 150 MG CAPSULE PO SCH (09:03)
[2017-02-03] MEDS: ENOXAPARIN SODIUM INJ 30 MG/0.3 ML DISP.SYRIN SUBCUT SCH (09:04)
[2017-02-03] MEDS: METFORMIN HCL 500 MG TABLET PO SCH ×2 (09:06→16:40)
[2017-02-03 12:37] VITALS: BP 118/68
== END 2017-02-03 17:00 | disposition home or self-care (01) | DRG 264 ==
LOC: ER 07:51 → INTOOBSV 09:36 → EH 09:36 → 2S 11:38 → OBSVTOIN 01-30 10:00 → 5 01-30 18:28
PROVIDERS: ADMIT Surgery; ATTEND Surgery
PROC: 0HBKXZZ Excision of Right Lower Leg Skin, External Approach (ICD-10-PCS; 2017-01-28)
PROC: 0HBLXZZ Excision of Left Lower Leg Skin, External Approach (ICD-10-PCS; principal; 2017-01-28 15:30)
PROC: 0HBLXZZ Excision of Left Lower Leg Skin, External Approach (ICD-10-PCS; 2017-01-31)
PROC: 0HBKXZZ Excision of Right Lower Leg Skin, External Approach (ICD-10-PCS; 2017-01-31)
DX: I87.333 Chronic venous hypertension (idiopathic) with ulcer and inflammation of bilateral lower extremity (principal); N17.9 Acute kidney failure, unspecified; L03.116 Cellulitis of left lower limb; Z68.43 Body mass index [BMI] 50.0-59.9, adult; E87.5 Hyperkalemia; R00.0 Tachycardia, unspecified; E11.9 Type 2 diabetes mellitus without complications; E66.01 Morbid (severe) obesity due to excess calories; M16.0 Bilateral primary osteoarthritis of hip; Z79.899 Other long term (current) drug therapy; Z79.84 Long term (current) use of oral hypoglycemic drugs; Z86.718 Personal history of other venous thrombosis and embolism; Z86.711 Personal history of pulmonary embolism; Z86.14 Personal history of Methicillin resistant Staphylococcus aureus infection; Z91.040 Latex allergy status
CPT/HCPCS: 00400; 36415; 80048; 82607; 82728; 82746; 83540; 83550; 84466; 85025; 85027; 85045; 87040; 87070; 87075; 87077; 87186; 87205; 93005; 93010; 99284; J0131; J1170; J1650; J2060; J2250; J2270; J2405; J2704; J3010; J3490; J7030

== ENCOUNTER → 2019-04-03 | Outpatient (CLI) | payer MEDICARE, MEDICAID | LOC: LAB 15:15 | PROVIDERS: ATTEND Surgery | DX: Z53.9 Procedure and treatment not carried out, unspecified reason (principal) | CPT/HCPCS: 36415; 80053; 85025; 85652; 86140 ==